=== PATIENT | female | born 1975 | race Two or more races ===

== ENCOUNTER 2022-06-17 21:54 | Emergency (ER) | payer BC ==
[~2022-06-17] VITALS: Ht 160 cm; Wt 59.0 kg
[2022-06-17] MEDS ORDERED: CIPRO500 MG PO (23:43)
[2022-06-17] MEDS ORDERED: PYRIDIUM200 MG PO (23:43)
== END 2022-06-18 01:19 | disposition home or self-care (01) ==
LOC: ER 21:54
DX: N39.0 Urinary tract infection, site not specified (principal); Z88.0 Allergy status to penicillin; Z88.2 Allergy status to sulfonamides